=== PATIENT | male | born 1965 | race Caucasian/White ===

== ENCOUNTER 2016-12-30 13:32 | Emergency (ER) ==
[2016-12-30] MEDS ORDERED: DECADRON IM ONE (15:04)
[2016-12-30] MEDS ORDERED: DUONEB (A & A) INH ONE (15:04)
--- NOTE | 2016-12-30 15:06 | PROVIDER DOCUMENTATION ---
HPI-Respiratory General <Alona RowellEstrada - Last Filed: 12/30/16 15:04> - General Source: patient - History of Present Illness-Resp Quality of Pain: reports: aching Severity in ED: reports: mild Onset/Duration: reports: 4 days ago Timing: reports: still present Exposure: reports: unknown cause Cough Quality/Degree: reports: mild Episode Frequency: frequent episodes Current Respiratory Medication Therapy: Initiated see nurses note Modifying Factors: improves with: nothing Associated Symptoms: reports: cough, nasal congestion, sore throat, wheezing. denies: chest pain/soreness, dizziness, earache, facial pain, fever/chills, flu- like symptoms, headache, heart racing, hurts to breathe, hyperventilating, lightheadedness, muscle/bodyaches, nasal drainage, shortness of breath, sinus pain, short of breath, sweaty Similar Symptoms Previously?: Yes Recently seen or treated by another doctor?: No <Rafia Kramer - Last Filed: 12/30/16 15:40> - General Chief Complaint: Cold Symptoms Stated Complaint: COLD SX Time Seen by Provider: 12/30/16 14:59 Allergies/Adverse Reactions: Patient Allergies Allergy/AdvReac Type Severity Reaction Status Date / Time No Known Allergies Allergy Verified 12/30/16 15:33 Home Medications: Home Medication List Medication Instructions Recorded Confirmed Last Taken Type Omeprazole 20 mg PO DAILY 04/06/14 12/30/16 12/30/16 History Amoxicillin [Amoxil] 500 mg PO BID #20 capsule 12/30/16 Unknown Rx Prednisone [Deltasone] 20 mg PO DIRECTED #12 tablet 12/30/16 Unknown Rx - History of Present Illness-Resp Nature of Presenting Problem: Pt is 51 y/o M presents to the ED with cough, congestion, sore throat, and sinus pressure. Pt states symptoms started 4 days ago. Pt states taking 's neb treatments at home. Pt denies F (Rafia Kramer) Review of Systems - Adult - REVIEW OF SYSTEMS - ADULT Constitutional: denies: chills, fever Eyes: denies: blurred vision, double vision Ears, Nose, Mouth & Throat: reports: sinus problem (congestion), throat pain. denies: ear pain, nose pain Cardiovascular: reports: irregular heart rate (tachy). denies: chest pain, heart murmur Respiratory: reports: cough, wheezing. denies: shortness of breath Gastrointestinal: denies: abdominal pain, diarrhea, nausea, vomiting Genitourinary: denies: dysuria, hematuria Musculoskeletal: denies: bone pain, joint pain, neck pain Integumentary: denies: hives, itching Neurological: denies: dizziness/vertigo, headache/migraines Psychiatric: reports: no symptoms reported Endocrine: reports: no symptoms reported Hematologic/Lymphatic: reports: no symptoms reported Allergic/Immunologic: reports: no symptoms reported All Other Systems: Reviewed and Negative <Rafia Kramer - Last Filed: 12/30/16 15:40> Past History - Adult - PAST MEDICAL HISTORY-ADULT Major Childhood Illnesses: reports: denies history Cardiovascular: reports: denies history Respiratory: reports: denies history Gastrointestinal: reports: GERD Musculoskeletal: reports: denies history Neurological: reports: denies history Psychiatric: reports: denies history Endocrine/Immune: reports: denies history Other Conditions: reports: denies history - PRIOR SURGERIES/PROCEDURES Surgical/Procedure History: reports: reviewed, not pertinent - PRIOR HOSPITALIZATIONS Prior Hospitalizations: reports: none - IMMUNIZATION STATUS Childhood Immunizations: See Nurse Assessment Flu Vaccine: See Nurse Assessment - FAMILY HISTORY Family History: reviewed, not pertinent <Alona Rowell - Last Filed: 12/30/16 15:04> - PAST MEDICAL HISTORY-ADULT Review of Records: reports: Nursing Assessment Review, Medications Reviewed, Social history reviewed & non-contributory. Major Childhood Illnesses: reports: denies history Cardiovascular: reports: denies history Respiratory: reports: denies history Gastrointestinal: reports: GERD Obstetrical/Gynecological: reports: denies history Genitourinary: reports: denies history Musculoskeletal: reports: denies history Neurological: reports: denies history Endocrine/Immune: reports: denies history Other Conditions: reports: denies history - PRIOR SURGERIES/PROCEDURES Surgical/Procedure History: reports: reviewed, not pertinent - IMMUNIZATION STATUS Childhood Immunizations: See Nurse Assessment Flu Vaccine: See Nurse Assessment - FAMILY HISTORY Family History: reviewed, not pertinent - SOCIAL HISTORY Smoking: cigarettes, less than 1 pack/day Provider spent 3-5 mins advising pt. on dangers of tobacco.: Discussed manners to quit use, and f/u contacts for add'l counseling. Substance Use: alcohol, marijuana Alcohol Use Frequency: occasionally Number of drinks per typical drinking period:: 2 drinks Living Situation: family <Rafia Kramer - Last Filed: 12/30/16 15:40> Physical Exam-General - PHYSICAL EXAM-ADULT Initial Vital Signs Reviewed: Yes - CONSTITUTIONAL General Appearance: appears well, alert, no apparent distress - EYES Eyes: PERRL/EOMI, pink conjunctivae, fundi clear, no AV nicking - HEAD, EARS, NOSE, MOUTH & THROAT HENMT: normocephalic/atraumatic, moist mucous membranes, normal ENT inspection, TMs normal, pharynx normal - NECK Neck: non-tender, full range of motion, supple, normal inspection - RESPIRATORY Respiratory: chest non-tender, no pleuratic chest pain, no respiratory distress , no accessory muscle use, wheezing - CARDIOVASCULAR Cardiovascular: normal peripheral pulses, no edema, no gallop, no JVD, no murmur , tachycardia - GASTROINTESTINAL (ABDOMEN) Abdominal Exam: normal bowel sounds, non tender, soft, no organomegaly, no pulsatile mass - LYMPHATIC Lymphatic: no adenopathy - MUSCULOSKELETAL Back Exam: normal inspection, no CVA tenderness, no vertebral tenderness Extremity: normal range of motion, non-tender, normal gait, normal inspection, no pedal edema, no calf tenderness, normal capillary refill, pelvis stable - SKIN Integumentary: normal color, normal turgor, warm/dry - NEUROLOGIC Neurologic: grossly normal - PSYCHIATRIC Psych/Mental Status: normal mood/affect, oriented x 3 <Rafia Kramer - Last Filed: 12/30/16 15:40> Progress <Alona Rowell - Last Filed: 12/30/16 15:04> <Rafia Kramer - Last Filed: 12/30/16 15:40> - PLAN OF CARE/RESULTS Progress/Plan/Lab Results: Orders Category Date Time Status DIRECT STREP Stat Lab 12/30/16 13:46 Completed INFLUENZA SCREEN A/B Stat Lab 12/30/16 13:46 Completed Albuterol 2.5MG/Ipratrop 0.5MG [Duoneb (A & A)] Med 12/30/16 15:04 Discontinued 3 ml INH NOW ONE Dexamethasone [Decadron] Med 12/30/16 15:04 Discontinued 4 mg IM NOW ONE Aerosol Treatments Routine Oth 12/30/16 15:04 Completed Aerosol Treatments Stat Oth 12/30/16 15:04 Completed Vital Signs - 24 hr 12/30/16 12/30/16 13:41 15:24 Temperature 98.4 F Pulse Rate 114 H 108 H Respiratory 20 22 Rate Blood Pressure 144/79 O2 Sat by Pulse 100 99 Oximetry (Rafia Kramer) Departure - Departure Time of Disposition Order: 15:04 Certified Medical Emergency: Emergent <Alona Rowell - Last Filed: 12/30/16 15:04> <Rafia Kramer - Last Filed: 12/30/16 15:40> - Departure DIAGNOSIS: Acute bronchitis Qualifiers: Bronchitis organism: unspecified organism Qualified Code(s): J20.9 - Acute bronchitis, unspecified Disposition: HOME 01 Condition: Stable Additional Instructions: Follow up with your primary care physician ED Follow Up Instructions: You have been treated by a care provider in the Emergency Department. These instructions are being provided to you so you can have an understanding of how to care for yourself upon discharge. Upon discharge from the Emergency Department, you are responsible for making arrangements for follow-up care by a physician of your choice. Take all prescribed medications as directed. Return to the Emergency Department immediately for any new or worsening symptoms. You may call the Physician Referral phone number at [phone] to obtain a list of Physicians who are taking new patients. Prescriptions: Amoxicillin [Amoxil] 500 mg PO BID #20 capsule Prednisone [Deltasone] 20 mg PO DIRECTED #12 tablet Referrals: None,PCP [Primary Care Provider] - Attestation - Scribe Verification/Attestation Scribe:: Rafia Kramer Acting as Scribe for:: Dwain Quiñones Scribe documention review:: This chart was documented by a scribe and accurately reflects the service the provider performed and the decisions made by the provider. <Rafia Kramer - Last Filed: 12/30/16 15:40> Physician Attestation
[2016-12-30 15:52] VITALS: BP 140/87
== END 2016-12-30 15:52 | disposition home or self-care (01) ==
LOC: ED 13:32
DX: J20.9 Acute bronchitis, unspecified (principal); R05 Cough; R09.81 Nasal congestion; J02.9 Acute pharyngitis, unspecified; R00.0 Tachycardia, unspecified; R06.2 Wheezing; K21.9 Gastro-esophageal reflux disease without esophagitis; F17.210 Nicotine dependence, cigarettes, uncomplicated; Z71.6 Tobacco abuse counseling; Z79.899 Other long term (current) drug therapy
CPT/HCPCS: 87081; 87430; 87804; 94640; 94761; J1100

== ENCOUNTER 2017-01-04 11:24 | Emergency (ER) ==
[2017-01-04 11:50] VITALS: BP 142/92
[2017-01-04] MEDS ORDERED: DECADRON IM ONE (13:49)
--- NOTE | 2017-01-04 14:07 | PROVIDER DOCUMENTATION ---
HPI-Musculoskeletal Pain/Inj - GENERAL Chief Complaint: Back Injury Stated Complaint: LOWER BACK PAIN Time Seen by Provider: 01/04/17 13:34 Source: patient - HX OF PRESENT ILLNESS-MUSKULOSKELTAL Nature of Presenting Problem: "I COUGHED AND MY BACK STARTED HURTING. I HAVE DEGENERATIVE DISC DISEASE." Vital Signs Temp Pulse Resp BP Pulse Ox 01/04/17 11:49 98.3 F 114 H 20 142/92 98 No Known Allergies Allergy (Verified 12/30/16 15:33) Omeprazole 20 mg PO DAILY 04/06/14 Amoxicillin [Amoxil] 500 mg PO BID #20 capsule 12/30/16 Prednisone [Deltasone] 20 mg PO DIRECTED #12 tablet 12/30/16 Cyclobenzaprine [Flexeril] 10 mg PO TID #20 tablet 01/04/17 Diclofenac Na D.r. [Voltaren] 75 mg PO BID #20 tablet 01/04/17 Quality of Pain: reports: burning Onset/Duration: unsure Timing: still present Modifying Factors: improves with: nothing Any recent injury?: No Similar Symptoms Previously?: Yes Recently seen or treated by another doctor?: No - FALL INJURY Location of Pain/Injury: reports: back Pain Radiation: reports: no radiation - BACK & NECK PAIN/INJURY Back/Neck Pain Location: reports: paraspinous muscles Associated Symptoms: reports: denies symptoms. denies: loss of bladder control , loss of bowel control History of Chronic Neck or Back Pain?: Yes Review of Systems - Adult - REVIEW OF SYSTEMS - ADULT Constitutional: reports: no symptoms reported, see HPI Eyes: reports: no symptoms reported Ears, Nose, Mouth & Throat: reports: no symptoms reported Cardiovascular: reports: no symptoms reported Respiratory: reports: no symptoms reported Gastrointestinal: reports: no symptoms reported Genitourinary: reports: no symptoms reported Integumentary: reports: see HPI Neurological: reports: no symptoms reported Psychiatric: reports: no symptoms reported Endocrine: reports: no symptoms reported Hematologic/Lymphatic: reports: no symptoms reported Allergic/Immunologic: reports: no symptoms reported All Other Systems: Reviewed and Negative Past History - Adult - PAST MEDICAL HISTORY-ADULT Review of Records: reports: Nursing Assessment Review, Medications Reviewed Major Childhood Illnesses: reports: denies history Cardiovascular: reports: denies history Respiratory: reports: denies history Gastrointestinal: reports: GERD Obstetrical/Gynecological: reports: denies history Genitourinary: reports: denies history Musculoskeletal: reports: neck/back injury Neurological: reports: denies history Psychiatric: reports: denies history Endocrine/Immune: reports: denies history Other Conditions: reports: denies history - PRIOR SURGERIES/PROCEDURES Surgical/Procedure History: reports: reviewed, not pertinent - PRIOR HOSPITALIZATIONS Prior Hospitalizations: reports: none - IMMUNIZATION STATUS Childhood Immunizations: See Nurse Assessment Flu Vaccine: See Nurse Assessment - FAMILY HISTORY Family History: reviewed, not pertinent Physical Exam-Injury Related - Physical Exam-Injury Related Initial Vital Signs Reviewed: Yes General Appearance: appears well Immobilization?: negative: backboard, C-collar, applied in ED, applied [employer] Eyes: PERRL/EOMI Head, Ears, Nose, Mouth & Throat: normocephalic/atraumatic Neck: non-tender, full range of motion Respiratory: chest non-tender Cardiovascular: normal peripheral pulses, regular rate, rhythm, no edema Lymphatic: no adenopathy Back Exam: normal inspection, muscle spasm Extremity: normal range of motion, normal gait Integumentary: normal color, warm/dry Neurologic: grossly normal Psych/Mental Status: normal mood/affect - Glascow Coma Score Best Eye Response ([place]): (4) open spontaneously Best Verbal Response (Tracey): (5) oriented Best Motor Response (Tracey): (6) obeys commands Progress - PLAN OF CARE/RESULTS Progress/Plan/Lab Results: Vital Signs Temp Pulse Resp BP Pulse Ox 01/04/17 11:49 98.3 F 114 H 20 142/92 98 No Known Allergies Allergy (Verified 12/30/16 15:33) Omeprazole 20 mg PO DAILY 04/06/14 Amoxicillin [Amoxil] 500 mg PO BID #20 capsule 12/30/16 Prednisone [Deltasone] 20 mg PO DIRECTED #12 tablet 12/30/16 Cyclobenzaprine [Flexeril] 10 mg PO TID #20 tablet 01/04/17 Diclofenac Na D.r. [Voltaren] 75 mg PO BID #20 tablet 01/04/17 TREAT WITH MUSCLE RELAXER AND ANTINFLAMMATORY TO F/U WITH PCP. Departure - Departure Time of Disposition Order: 14:04 DIAGNOSIS: Muscle spasm Back pain Qualifiers: Back pain location: low back pain Chronicity: acute Back pain laterality: right Sciatica presence: without sciatica Qualified Code(s): M54.5 - Low back pain Disposition: HOME 01 Certified Medical Emergency: Emergent Condition: Stable Additional Instructions: ED Follow Up Instructions: You have been treated by a care provider in the Emergency Department. These instructions are being provided to you so you can have an understanding of how to care for yourself upon discharge. Upon discharge from the Emergency Department, you are responsible for making arrangements for follow-up care by a physician of your choice. Take all prescribed medications as directed. Return to the Emergency Department immediately for any new or worsening symptoms. You may call the Physician Referral phone number at [phone] to obtain a list of Physicians who are taking new patients. Prescriptions: Cyclobenzaprine [Flexeril] 10 mg PO TID #20 tablet Diclofenac Na D.r. [Voltaren] 75 mg PO BID #20 tablet Referrals: None,PCP [Primary Care Provider] - Instructions: Muscle Cramps and Spasms, [id number], Back Pain, Adult
== END 2017-01-04 14:12 | disposition home or self-care (01) ==
LOC: ED 11:24
DX: M54.5 Low back pain (principal); M62.830 Muscle spasm of back; Z79.899 Other long term (current) drug therapy; Z79.52 Long term (current) use of systemic steroids
CPT/HCPCS: 96372